=== PATIENT | male | born 1975 | race Caucasian/White ===

== ENCOUNTER 2020-10-24 06:30 | Outpatient (CLI) | payer BC ==
[2020-10-24 10:48] LABS: #Basophils 0.1 10x3/uL (0.0-0.2); #Eosinphils 0.3 10x3/uL (0.0-0.5); #Monocytes 0.7 10x3/uL (0.0-1.1); #Neutrophils 6.2 10x3/uL (1.5-8.4); %Basophils 0.6 % (0.0-2.0); %Eosinophils 3.2 % (0.0-6.0); %Lymphocytes 25.3 % (18.0-47.0); %Monocytes 7.1 % (0.0-10.0); %Neutrophils 62.8 % (40.0-75.0); Hemoglobin 15.7 g/dL (14.0-18.0); Mean Corpuscular HGB CONC 33.3 G/DL (32.0-36.0); Mean Corpuscular Hemoglobin 26.7 PG (27.0-33.0); Mean Corpuscular Volume 80.4 fl (80.0-100.0); Mean Platelet Volume 10.2 fl (7.4-10.4); Platelet Count 341 10x3/uL (130-400); RBC Distribution Width 14.8 % (11.5-14.5); Red Blood Cell (RBC) Count 5.87 10x6/uL (4.40-5.80); White Blood Cell (WBC) Count 9.9 10x3/uL (4.5-11.0)
[2020-10-24 10:55] LABS: Bilirubin Neg (Negative); Blood, Urine Negative (Negative); Clarity Clear (Clear); Glucose, Urine (Dipstick) Normal (Negative); Ketone, Urine Negative (Negative); Leukocyte Negative (Negative); Nitrite Negative (Negative); Protein, Urine (Dipstick) 15 mg/dl (Neg-Trace); Urobilinogen Normal mg/dL (Less than 2)
[2020-10-24 11:14] LABS: Bacteria/HPF None Seen HPF (None Seen); RBC/HPF 0-3 HPF (0-3); Squamous Epithelial None Seen HPF (0-3); WBC/HPF None Seen HPF (0-3)
[2020-10-24 20:04] LABS: SARS-CoV-2 MS2 Positive; SARS-CoV-2 N Gene Negative; SARS-CoV-2 S Gene Negative; SARS-CoV-2 by NAA Not Detected (NotDetected); SARS-CoV-2 orf1ab Negative
== END 2020-10-24 06:31 | disposition home or self-care (01) ==
LOC: LABBT 06:30
PROVIDERS: ATTEND Orthopaedic Surgery Hand Surgery
DX: Z01.812 Encounter for preprocedural laboratory examination (principal); Z20.828 Contact with and (suspected) exposure to other viral communicable diseases; M65.9 Synovitis and tenosynovitis, unspecified; M19.132 Post-traumatic osteoarthritis, left wrist
CPT/HCPCS: 81001; 85025; 87635; U0003

== ENCOUNTER 2020-10-27 08:22 | Day surgery (SDC) | payer BC ==
[2020-10-26 10:35] VITALS: BMI 41.5
[2020-10-27] MEDS ORDERED: Fentanyl 100 MCG/2 ML VIAL ONE ×2 (08:38→09:48)
[2020-10-27] MEDS ORDERED: Midazolam HCl 2 mg/2 ml Vial ONE ×2 (08:38→09:48)
[2020-10-27] MEDS ORDERED: Bupivacaine PF 0.5% 30 ML VIAL ONE (09:50)
[2020-10-27] MEDS ORDERED: Bacitracin Zinc Ointment 30 gm TUBE ONE (09:50)
[2020-10-27] MEDS ORDERED: EPINEPHrine 1 MG/ML AMP ONE (09:50)
[2020-10-27] MEDS ORDERED: Sodium Chloride 0.9% 10 ML ONE (09:51)
[2020-10-27] MEDS ORDERED: Ondansetron PF 4 MG/2 ML Vial ONE (10:09)
[2020-10-27] MEDS ORDERED: Dexamethasone 20 MG/5 ML VIAL ONE (10:09)
[2020-10-27] MEDS ORDERED: Bupivacaine HCl 0.5%/Epinephrine 1:200,000/PF 30 ml Vial ONE (10:09)
[2020-10-27] MEDS ORDERED: Ketorolac Tromethamine 30 MG/ML VIAL ONE (10:09)
[2020-10-27] MEDS ORDERED: PROPOFOL 200 MG/20 ML VIAL ONE (10:09)
[2020-10-27] MEDS ORDERED: Lidocaine 1% PF 5 ML VIAL ONE (10:09)
[2020-10-27] MEDS ORDERED: Thrombin 5000 UNITS/5 ML VIAL ONE (12:42)
--- NOTE | 2020-10-27 16:14 | EKG ---
Test Reason : PREOP Blood Pressure : / mmHG Vent. Rate : 080 BPM Atrial Rate : 080 BPM P-R Int : 158 ms QRS Dur : 108 ms QT Int : 364 ms P-R-T Axes : 025 -06 018 degrees QTc Int : 419 ms Normal sinus rhythm No previous ECGs available Confirmed by DR. Asia CANDELARIO ([id number]) on 10/27/2020 4:13:38 PM Referred By: JUDITH Confirmed By:DR. Asia CANDELARIO
--- NOTE | 2020-10-27 17:54 | RAD ---
EXAM: LEFT WRIST THREE VIEWS: 10/27/20 HISTORY: Left wrist synovectomy and osteotomy. Multiple portable fluoroscopic spot films are presented or interpretation. These document changes ass ociated with synovectomy and osteotomy. IMPRESSION: Imaged documentation during synovectomy and osteotomy. POS: RRE
--- NOTE | 2020-10-30 11:36 | OP ---
DATE OF PROCEDURE: 10/27/2020 PREOPERATIVE DIAGNOSES: 1. Left wrist synovitis. 2. 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 PROCEDURE PERFORMED: 1. Left wrist arthroscopic synovectomy, partial. 2. Left wrist open synovectomy, complete. 3. Left wrist open capitate cystectomy with tumor excision. 4. Left wrist capitate methyl methacrylate. 5. Left wrist major bone graft in the defect created by excision of the tumor from the interosseous scaphoid. FINDINGS: The patient did not have advanced collapse of his arch yet and still had more than 70% chondral surface intact between the interosseous bones. SPECIMEN SENT: 1. Synovium. 2. Capitate cyst. 3. Capitate bone after debridement internally. 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 For this, we felt having impending pathological fracture as well as need for large wound care system. DESCRIPTION OF PROCEDURE: After successful general endotracheal anesthesia, the limb was prepped and draped. The patient then had time-out done appropriately and then delineated the procedure that would be done. We then placed placed his arm in in-line traction, performed arthroscopic visualization of joint using the 3-4 portal as well as the 6U and 6R portals. This gave visualization and it appropriately helped us to determine the patient had markedly positive capitate cyst with early drive-through sign scapholunate and also on the left side synovitis. We debrided the synovitis in the wrist as much as possible except for those deep and volar to the dorsal incision. Once the arthroscopic synovectomy was accomplished, well, we then immediately could see the capitate cystic changes as it occupied almost 50% of the capitate bone. We shelled out the cyst using a combination of tenotomy scissors as well as the curette of progressive size. Once we achieved approximately a 6 mm defect, we realized we would have to bone graft this tumor. The patient then had the exposed capitate, with a box type cut on the capsule, sent off the specimen to the lab, and saved a small amount for visualization . We then returned to the bone where the joint of wrist was intact and there was no marked erosion. The synovitis had not been completely successful. Could not visualize the capitate well. Scope was removed, and then we exsanguinated the limb and inflated to 250 mmHg pressure. We then used extension of the present incision until we could carpal bones and base of metacarpals completely. We then irrigated, repeated the same cycle. The patient then with our scope removed was prepared for open capitate cystectomy. We then made a Yessica incision over the radiocarpal joint, extended distally for the radial lesion evaluation. We then curetted out the portion of the unused capitate while we waited pathological specimen identification. The patient had methyl methacrylate mixed to form antibiotic beads and they gave off quite a bit of heat, which we placed inside the cavity. There was no evidence of any other bone involvement of this capitate and we were able to shell out this area, send as specimen, and sent for biopsy to rule out some type of end-stage problem. At 60 minutes the tourniquet was released. We then obtained hemostasis. I then closed the wound with simple closure of fascial planes, and bone graft. The patient left the operating room without evidence of anesthetic or operative complication. Job ID: [id number]
--- NOTE | 2020-11-14 06:05 | PQF ---
[facility] POST DISCHARGE CLINICAL DOCUMENTATION IMPROVEMENT CLARIFICATION FORM Todays Date: 11/14/20 Patients Name NACHO RAMIREZ Admit Date 10/27/20 Disch Date 10/27/20 Registered Radiographer Name Daydayanna Fernandezromaine Pandey Email: [email or web address]: [phone] To be completed by Registered Radiographer: Present Clinical Indicators - Signs / Symptoms Results and Location in Medical Record [ ] Documentation of: [ ] [ ] Documentation of: [ ] [ ] Documentation of: [ ] [ ] Documentation of: [ ] [ ] Risks [ ] [ ] [ ] Treatment [ ] 1. Left wrist capitate cyst 2. Left wrist major bone graft 1. Query for size w/ margins (cm) of excised cyst. 2. Query if bone graft used was an allograft or autograft [ ] [ ] To be completed by Physician: IMANI RICE The documentation in this patients record requires clarification to ensure coding compliance and accuracy. Check the appropriate box and include in your discharge summary. [ ] [ ] [ ] [ ] Please check this box if this does not apply to this patient [ ] Unable to determine [ ] Other diagnosis: Review the following information and exercise your independent professional judgment in responding to the clarification. Based upon the clinical findings, risk factors, and treatment, please clarify if you are treating one of the above probable or suspected diagnoses. Physician Signature: Date Time MTDD
== END 2020-10-27 16:12 | disposition home or self-care (01) ==
LOC: SDC 08:22
PROVIDERS: ATTEND Orthopaedic Surgery Hand Surgery
PROC: 0PR Upper Bones, Replacement (ICD-10-PCS; principal; 2020-10-27)
PROC: 3E0T3BZ Introduction of Anesthetic Agent into Peripheral Nerves and Plexi, Percutaneous Approach (ICD-10-PCS; principal; 2020-10-27)
PROC: 0RBP0ZZ Excision of Left Wrist Joint, Open Approach (ICD-10-PCS; principal; 2020-10-27)
DX: M65.88 Other synovitis and tenosynovitis, other site (principal); M85.68 Other cyst of bone, other site; M10.9 Gout, unspecified; M25.832 Other specified joint disorders, left wrist; G89.18 Other acute postprocedural pain; I10 Essential (primary) hypertension; G47.30 Sleep apnea, unspecified; M19.90 Unspecified osteoarthritis, unspecified site; E66.9 Obesity, unspecified; Z68.41 Body mass index [BMI] 40.0-44.9, adult; Z79.899 Other long term (current) drug therapy; Z96.643 Presence of artificial hip joint, bilateral
CPT/HCPCS: 76000; 88305; 88312; 88331; 88334; 89060; 93005; 93010; C1713; J0171; J1100; J1885; J2250; J2405; J2704; J3010; J3490; S0020

== ENCOUNTER 2021-03-12 13:07 | Outpatient (CLI) | payer OTHER | END 2021-03-12 13:08 | disposition home or self-care (01) | LOC: DTY/OP 13:07 | PROVIDERS: ATTEND Family Medicine | DX: Z68.42 Body mass index [BMI] 45.0-49.9, adult (principal) | CPT/HCPCS: 97802 ==

== ENCOUNTER 2021-07-12 | Outpatient (CLI) | payer BC | END 2021-07-12 12:31 | disposition home or self-care (01) | DX: M25.532 Pain in left wrist (principal) ==

== ENCOUNTER 2021-09-28 08:35 | Outpatient (CLI) | payer BC ==
[2021-09-28 09:37] LABS: #Basophils 0.1 10x3/uL (0.0-0.2); #Eosinphils 0.2 10x3/uL (0.0-0.5); #Monocytes 0.7 10x3/uL (0.0-1.1); #Neutrophils 5.5 10x3/uL (1.5-8.4); %Basophils 0.6 % (0.0-2.0); %Eosinophils 2.1 % (0.0-6.0); %Monocytes 7.4 % (0.0-10.0); %Neutrophils 61.5 % (40.0-75.0); Hemoglobin 15.6 g/dL (13.5-17.5); Mean Corpuscular HGB CONC 33.1 g/dL (32.0-36.0); Mean Corpuscular Hemoglobin 27.8 pg (27.0-33.0); Mean Corpuscular Volume 84.1 fl (81.2-95.1); Mean Platelet Volume 9.6 fl (7.4-10.4); Platelet Count 404 10x3/uL (150-450); Red Blood Cell (RBC) Count 5.61 10x6/uL (4.32-5.72)
[2021-09-28 18:04] LABS: SARS-CoV-2 PCR by NAA Not Detected (NotDetected)
== END 2021-09-28 08:36 | disposition home or self-care (01) ==
LOC: LABBT 08:35
PROVIDERS: ATTEND Orthopaedic Surgery Hand Surgery
DX: Z01.818 Encounter for other preprocedural examination (principal); M19.132 Post-traumatic osteoarthritis, left wrist; Z20.822 Contact with and (suspected) exposure to COVID-19
CPT/HCPCS: 85025; 93005; 93010; U0003; U0005

== ENCOUNTER 2021-10-02 05:50 | Observation (INO) | payer BC ==
[2021-10-01 12:22] VITALS: BMI 43.2
[2021-10-02] MEDS ORDERED: Neomycin-Polymyxin 1 ML AMP ONE (06:18)
[2021-10-02] MEDS ORDERED: Bacitracin Zinc Ointment 30 gm TUBE ONE (06:18)
[2021-10-02] MEDS ORDERED: Bupivacaine PF 0.5% 30 ML VIAL ONE (06:18)
[2021-10-02] MEDS ORDERED: Midazolam HCl 2 mg/2 ml Vial ONE (06:43)
[2021-10-02] MEDS ORDERED: Fentanyl 100 MCG/2 ML VIAL ONE ×5 (06:43→13:07)
[2021-10-02] MEDS ORDERED: SUGAMMADEX SODIUM 200 MG/2 ML VIAL ONE (07:10)
[2021-10-02] MEDS ORDERED: Phenylephrine 10 MG/ML VIAL ONE (07:10)
[2021-10-02] MEDS ORDERED: Bupivacaine HCl 0.5%/Epinephrine 1:200,000/PF 30 ml Vial ONE (07:29)
[2021-10-02] MEDS ORDERED: Dexamethasone 20 MG/5 ML VIAL ONE (07:29)
[2021-10-02] MEDS ORDERED: PROPOFOL 200 MG/20 ML VIAL ONE (07:29)
[2021-10-02] MEDS ORDERED: Esmolol 100 MG/10 ML VIAL ONE (07:29)
[2021-10-02] MEDS ORDERED: PHENYLEPHRINE-NS 100 MCG/ML 10 ML SYRINGE ONE ×2 (07:29→11:06)
[2021-10-02] MEDS ORDERED: Ketorolac Tromethamine 30 MG/ML VIAL ONE (07:29)
[2021-10-02] MEDS ORDERED: Rocuronium Bromide 10 MG/ML (10ML VIAL) ONE (07:29)
[2021-10-02] MEDS ORDERED: Lidocaine 1% PF 5 ML VIAL ONE (07:29)
[2021-10-02] MEDS ORDERED: Rocuronium Bromide 50 MG/5 ML VIAL ONE ×2 (08:42→11:05)
[2021-10-02] MEDS ORDERED: Ketamine 50 MG/ML (10ML VIAL) ONE (10:09)
[2021-10-02] MEDS ORDERED: Metoprolol Tartrate 5 MG/5 ML VIAL ONE (13:25)
[2021-10-02] MEDS ORDERED: HYDROcodone/Acetaminophen 5/325 mg Tablet ONE (15:07)
[2021-10-02] MEDS ORDERED: Meperidine HCl/PF 25 MG/ML VIAL IM PRN (16:21)
[2021-10-02] MEDS ORDERED: Promethazine HCl 25 MG/ML VIAL IM PRN (16:22)
[2021-10-02] MEDS ORDERED: Morphine 4 MG/ML VIAL SLOW IVP PRN (16:24)
[2021-10-02] MEDS ORDERED: Montelukast Sodium 10 mg Tablet PO PRN (17:13)
[2021-10-02] MEDS: VANCOMYCIN 1.25 GM/250 ML BAG 1.25 GM in Premix Bag 1 BAG IVPB SCH (17:34)
[2021-10-02] MEDS: HYDROcodone/Acetaminophen 7.5/325 mg Tablet PO PRN (22:51)
[2021-10-03] MEDS: VANCOMYCIN 1.25 GM/250 ML BAG 1.25 GM in Premix Bag 1 BAG IVPB SCH (03:51)
[2021-10-03 08:00] VITALS: TEMP 98
[2021-10-03] MEDS: HYDROcodone/Acetaminophen 7.5/325 mg Tablet PO PRN ×2 (08:44→14:14)
[2021-10-03] MEDS ORDERED: Ibuprofen 800 MG TAB PO SCH (09:00)
[2021-10-03] MEDS ORDERED: Lisinopril 20 MG TAB PO SCH (09:00)
[2021-10-03 12:06] VITALS: BP 117/75
[2021-10-04] MEDS ORDERED: Anastrozole 1 MG TAB PO SCH (09:00)
== END 2021-10-03 15:04 | disposition home or self-care (01) ==
LOC: SDC 05:50 → SURG A 15:46
PROVIDERS: ADMIT Orthopaedic Surgery Hand Surgery; ATTEND Orthopaedic Surgery Hand Surgery
PROC: 0RGP07Z Fusion of Left Wrist Joint with Autologous Tissue Substitute, Open Approach (ICD-10-PCS; principal; 2021-10-02)
PROC: 0RGP04Z Fusion of Left Wrist Joint with Internal Fixation Device, Open Approach (ICD-10-PCS; 2021-10-02)
PROC: 3E0T3BZ Introduction of Anesthetic Agent into Peripheral Nerves and Plexi, Percutaneous Approach (ICD-10-PCS; 2021-10-02)
DX: M19.132 Post-traumatic osteoarthritis, left wrist (principal); M10.9 Gout, unspecified; Z79.811 Long term (current) use of aromatase inhibitors; Z79.899 Other long term (current) drug therapy; Z98.890 Other specified postprocedural states; Z96.653 Presence of artificial knee joint, bilateral
CPT/HCPCS: 76000; 96365; 96366; 96376; C1713; G0378; J0690; J1100; J1885; J2250; J2370; J2704; J3010; J3370; S0020

== ENCOUNTER 2022-05-19 12:56 | Inpatient (IN) | payer BC ==
[2022-05-19] MEDS ORDERED: Bupivacaine PF 0.5% 30 ML VIAL ONE (16:04)
[2022-05-19] MEDS ORDERED: Lidocaine 1% w/Epinephrine 1:100K 20 ML VIAL ONE (16:04)
[2022-05-19] MEDS ORDERED: Lidocaine 2% 6 ML SYR ONE (16:06)
[2022-05-19] MEDS ORDERED: fentaNYL Citrate/PF 100 MCG/2 ML SYRINGE ONE (16:06)
[2022-05-19] MEDS ORDERED: Sodium Chloride 0.9% 100 ML ONE (16:13)
[2022-05-19] MEDS ORDERED: CEFAZOLIN 2 GM VIAL ONE (16:13)
[2022-05-19] MEDS ORDERED: Ondansetron PF 4 MG/2 ML Vial ONE (16:20)
[2022-05-19] MEDS ORDERED: Succinylcholine 200 MG/10 ml SYRINGE FS ONE (16:20)
[2022-05-19] MEDS ORDERED: Glycopyrrolate 0.2 MG/ML 5 ML SYRINGE ONE (16:20)
[2022-05-19] MEDS ORDERED: PROPOFOL 200 MG/20 ML VIAL ONE (16:20)
[2022-05-19] MEDS ORDERED: Dexamethasone 20 MG/5 ML VIAL ONE (16:20)
[2022-05-19] MEDS ORDERED: Rocuronium Bromide 10 MG/ML (10ML VIAL) ONE (16:20)
[2022-05-19] MEDS ORDERED: Lidocaine 1% PF 5 ML VIAL ONE (16:20)
[2022-05-19] MEDS ORDERED: Promethazine HCl 25 MG/ML VIAL IM PRN ×2 (16:59→17:11)
[2022-05-19] MEDS ORDERED: Dextrose 50% Abboject 50 ML SYRINGE SLOW IVP PRN (16:59)
[2022-05-19] MEDS ORDERED: Ondansetron PF 4 MG/2 ML Vial IVP PRN (16:59)
[2022-05-19] MEDS ORDERED: Dextrose 5% in Water 1,000 ML IV PRN (16:59)
[2022-05-19] MEDS ORDERED: HYDROcodone/Acetaminophen 10/325 mg Tablet PO PRN (16:59)
[2022-05-19] MEDS ORDERED: hydrALAZINE 20 MG/ML VIAL SLOW IVP PRN (16:59)
[2022-05-19] MEDS ORDERED: Morphine 4 MG/ML VIAL SLOW IVP PRN (16:59)
[2022-05-19] MEDS ORDERED: Acetaminophen 325 MG TAB PO PRN (16:59)
[2022-05-19] MEDS ORDERED: Ondansetron HCl/PF 4 MG/2 ML Vial IVP PRN (17:11)
[2022-05-19] MEDS ORDERED: Promethazine HCl 25 MG/ML VIAL IVPB PRN (17:11)
[2022-05-19] MEDS ORDERED: Meperidine HCl/PF 25 MG/ML VIAL ONE (17:14)
[2022-05-19] MEDS ORDERED: D5 1/2 NS w/20 mEq KCL 1,000 ML ONE (17:29)
[2022-05-19] MEDS: D5 1/2 NS w/20 mEq KCL 1,000 ML IV SCH (18:12)
[2022-05-19 20:09] VITALS: BMI 30.4
[2022-05-19] MEDS: Famotidine/PF 20 mg/2ml Vial SLOW IVP SCH (20:33)
[2022-05-19] MEDS: Famotidine 20 MG TAB PO SCH (22:16)
[2022-05-20] MEDS: D5 1/2 NS w/20 mEq KCL 1,000 ML IV SCH (05:52)
[2022-05-20] MEDS ORDERED: Lisinopril 20 MG TAB PO SCH (09:00)
[2022-05-20] MEDS: Famotidine/PF 20 mg/2ml Vial SLOW IVP SCH (09:11)
[2022-05-20] MEDS: Famotidine 20 MG TAB PO SCH (09:11)
[2022-05-20 11:37] VITALS: BP 116/68; TEMP 97.5
== END 2022-05-20 13:50 | disposition home or self-care (01) | DRG 355 ==
LOC: SDC 12:56 → SURG A 16:54
PROVIDERS: ADMIT Surgery; ATTEND Surgery
PROC: 0WUF0JZ Supplement Abdominal Wall with Synthetic Substitute, Open Approach (ICD-10-PCS; principal; 2022-05-19)
DX: K43.6 Other and unspecified ventral hernia with obstruction, without gangrene (principal); I10 Essential (primary) hypertension; M10.9 Gout, unspecified; M19.90 Unspecified osteoarthritis, unspecified site; Z96.649 Presence of unspecified artificial hip joint; Z79.899 Other long term (current) drug therapy
CPT/HCPCS: C1781; C1889; J0690; J1100; J2175; J2405; J2704; J3480; J3490; S0020

== ENCOUNTER 2022-12-06 07:37 | Outpatient (CLI) | payer BC ==
[2022-12-08 17:38] LABS: ANA Symphony (Qualitative) Negative (Negative); ANA Symphony (Quantitative) 0.4 Ratio (< 0.7 Negative); dsDNA IgG Antibody 1.4 IU/mL (<10 Negative)
== END 2022-12-06 07:38 | disposition home or self-care (01) ==
LOC: SCSRAD 07:37
PROVIDERS: ATTEND Family Medicine
DX: R05.8 Other specified cough (principal); K13.70 Unspecified lesions of oral mucosa
CPT/HCPCS: 36415; 71046; 86038; 86225

== ENCOUNTER 2024-05-19 12:37 | Outpatient (CLI) | payer BC | END 2024-05-19 12:38 | disposition home or self-care (01) | LOC: SCSMRI 12:37 | PROVIDERS: ATTEND Orthopaedic Surgery Hand Surgery | DX: S63.591A Other specified sprain of right wrist, initial encounter (principal); M25.431 Effusion, right wrist; R93.6 Abnormal findings on diagnostic imaging of limbs ==

== ENCOUNTER 2024-09-15 08:11 | Outpatient (CLI) | payer BC ==
[2024-09-15 12:31] LABS: #Basophils 0.05 10x3/uL (0.0-0.2); %Basophils 0.5 % (0.0-1.0); %Eosinophils 4.1 % (0.0-10.0); %Lymphocytes 30.5 % (21.0-51.0); %Monocytes 8.6 % (0.0-10.0); %Neutrophils 55.7 % (42.0-75.0); Hematocrit 45.3 % (42.0-52.0); Hemoglobin 15.2 g/dL (14.0-18.0); Mean Corpuscular HGB CONC 33.6 g/dL (32.0-36.0); Mean Corpuscular Hemoglobin 27.6 pg (27.0-31.0); Mean Corpuscular Volume 82.4 fL (78.0-98.0); Platelet Count 332 10x3/uL (130-400); RBC Distribution Width 13.2 % (11.5-14.5)
== END 2024-09-15 08:12 | disposition home or self-care (01) ==
LOC: LABBT 08:11
PROVIDERS: ATTEND Orthopaedic Surgery Hand Surgery
DX: Z01.818 Encounter for other preprocedural examination (principal); S63.591A Other specified sprain of right wrist, initial encounter; M77.8 Other enthesopathies, not elsewhere classified
CPT/HCPCS: 85025; 93005; 93010